=== PATIENT | male | born 1990 | race Two or more races ===

== ENCOUNTER 2018-12-18 07:47 | Day surgery (SDC) | payer OTHER ==
[~2018-12-18 07:47] MED LIST: CITA-106 PO; SODIUM CHLORIDE 0.9% 1,000 ML IV ONE
[2018-12-18] MEDS ORDERED: LIDOCAINE/PF 2% 5 ML SYRINGE IVP ONE ×2 (07:48→12:00)
[2018-12-18] MEDS ORDERED: PROPOFOL 1% 20 ML VIAL IVP ONE (12:00)
== END 2018-12-18 10:05 | disposition home or self-care (01) ==
LOC: SURGERY 07:47
PROVIDERS: ATTEND Internal Medicine Gastroenterology
DX: K29.50 Unspecified chronic gastritis without bleeding (principal); F32.9 Major depressive disorder, single episode, unspecified; F84.5 Asperger's syndrome; K76.0 Fatty (change of) liver, not elsewhere classified; E66.01 Morbid (severe) obesity due to excess calories; Z79.899 Other long term (current) drug therapy; Z98.890 Other specified postprocedural states
CPT/HCPCS: 43239; 88305; 88312; 88313; C1769; J2704; J3490; J7030